=== PATIENT | female | born 2000 | race Caucasian/White ===

== ENCOUNTER → 2024-09-15 | Outpatient (CLI) | payer BC ==
--- NOTE | 2024-09-30 14:52 | HM ---
HOLTER MONITOR REPORT The patient was monitored for 72 hours. Baseline rhythm is sinus mechanism. The average rate 63 beats per minute, minimum 91, maximum 183 beats per minute. Ventricular ectopic activity was not present. Supraventricular ectopic activity was present in the form of rare single PACs. Episode of sinus tachycardia was noted. CONCLUSION: 1. Sinus mechanism, baseline rhythm. 2. Rare supraventricular ectopic activity. 3. No ventricular ectopic activity. 4. No diary was available. MMODL / IJN: [id number] /
== END | disposition home or self-care (01) ==
LOC: RADECHMAIN 12:45
PROVIDERS: ATTEND Family Medicine
DX: R00.0 Tachycardia, unspecified (principal)
CPT/HCPCS: 93225